=== PATIENT | female | born 1985 | race Caucasian/White ===

== ENCOUNTER 2023-01-17 16:39 | Outpatient (CLI) | payer OTHER | END 2023-01-17 17:49 | disposition home or self-care (01) | LOC: NST 16:39 | PROVIDERS: ATTEND Obstetrics & Gynecology Gynecology | DX: Z34.83 Encounter for supervision of other normal pregnancy, third trimester (principal) ==

== ENCOUNTER 2023-02-03 15:56 | Inpatient (IN) | payer OTHER ==
[~2023-02-03] VITALS: Ht 170.2 cm; Wt 2.7 kg
[2023-02-14] MEDS ORDERED: ZYRTEC10 MG PO (18:31)
[2023-02-14] MEDS ORDERED: PRENATAL + DHA1 EAC1 PO (18:31)
[2023-02-14] MEDS ORDERED: DELZICOL400 M1 PO (18:32)
== END 2023-02-18 14:04 | disposition home or self-care (01) | DRG 788 ==
LOC: LDR 02-14 17:10 → O/R 02-15 12:59 → OB/GYN 02-15 14:04
PROVIDERS: ADMIT Obstetrics & Gynecology Gynecology; ATTEND Obstetrics & Gynecology Gynecology
PROC: 4A1HXCZ Monitoring of Products of Conception, Cardiac Rate, External Approach (ICD-10-PCS; 2023-02-14)
PROC: 10D00Z1 Extraction of Products of Conception, Low, Open Approach (ICD-10-PCS; principal; 2023-02-15 12:00)
DX: O82 Encounter for cesarean delivery without indication (principal); O76 Abnormality in fetal heart rate and rhythm complicating labor and delivery; Z3A.39 39 weeks gestation of pregnancy; Z37.0 Single live birth; Z20.822 Contact with and (suspected) exposure to COVID-19

== ENCOUNTER 2023-02-03 16:32 | Outpatient (CLI) | payer OTHER | END 2023-02-03 17:50 | disposition home or self-care (01) | LOC: NST 16:32 | PROVIDERS: ATTEND Obstetrics & Gynecology | DX: Z34.83 Encounter for supervision of other normal pregnancy, third trimester (principal) ==

== ENCOUNTER 2023-02-14 13:31 | Outpatient (CLI) | payer OTHER ==
[2023-02-14] MEDS ORDERED: PRENATAL + DHA1 EAC1 PO (18:31)
[2023-02-14] MEDS ORDERED: ZYRTEC10 MG PO (18:31)
[2023-02-14] MEDS ORDERED: DELZICOL400 M1 PO (18:32)
== END 2023-02-14 14:00 | disposition home or self-care (01) ==
LOC: NST 13:31
PROVIDERS: ATTEND Obstetrics & Gynecology Maternal & Fetal Medicine
DX: Z34.83 Encounter for supervision of other normal pregnancy, third trimester (principal)